=== PATIENT | female | born 1990 | race African-American/Black ===

== ENCOUNTER → 2022-07-03 | Emergency (ER) | payer OTHER ==
[~2022-07-03] VITALS: Ht 157.5 cm; Wt 74.8 kg
[~2022-07-03] MED LIST: ALBUTEROL2.5 MG/3 M IH; DUI500 PO; LEVOTHYROXINE25 MC1 PO
== END | disposition home or self-care (01) ==
LOC: ER 09:09
DX: J32.9 Chronic sinusitis, unspecified (principal); B34.9 Viral infection, unspecified; Z20.822 Contact with and (suspected) exposure to COVID-19